=== PATIENT | female | born 1985 | race Hispanic/Latino ===

== ENCOUNTER → 2024-11-25 | Outpatient (CLI) | payer BC ==
[~2024-11-25] MED LIST: DIATR MEGLU/DIATRIZOATE SODIUM 30 ML BOTTLE ONE
--- NOTE | 2024-11-25 16:34 | HMCIMG ---
UPPER GI W/SMALL BOWEL REASON: Dysphagia, unspecified/EARLY SATIETY/Gastro-esophageal reflux disease. COMPARISON: None TECHNIQUE: Biphasic upper GI series study with small bowel follow through study was performed. FINDINGS: There is no obstruction to the antegrade passage of barium from mouth through cecum. There is delayed emptying noted of contrast from stomach into duodenum may be related to partial gastric outlet obstruction. A normal esophagus. No significant is no evidence of height. Gastroesophageal reflux is seen to the level of the distal thoracic esophagus. Stomach is well-distended. No ulceration or mass lesion. Duodenal bulb and duodenal sweep are unremarkable. Mucosal fold pattern of jejunum and ileum are compatible. No separation of bowel loops is seen in the ileocecal valve area. IMPRESSION: No obstruction is seen. Mild gastroesophageal reflux to the level of distal thoracic esophagus. There is slow transit noted of the contrast from stomach into the duodenum suspicious for partial gastric outlet obstruction.
== END | disposition home or self-care (01) ==
LOC: RAH 09:50 → EDUNIT# 10:00
PROVIDERS: ATTEND Internal Medicine
DX: K21.9 Gastro-esophageal reflux disease without esophagitis (principal); K30 Functional dyspepsia; R13.10 Dysphagia, unspecified; R68.81 Early satiety
CPT/HCPCS: 74240; Q9963